=== PATIENT | male | born 1975 | race Two or more races ===

== ENCOUNTER 2024-07-17 16:26 | Emergency (ER) | payer MEDICAID, SELFPAY ==
--- NOTE | ~2024-07-17 | XR_ITS ---
CLINICAL HISTORY: pain Right knee, 4 views COMPARISON: None FINDINGS: No acute fracture. No dislocation. Upper patellar enthesophyte. Small suprapatellar effusion. Mild soft tissue edema. IMPRESSION: No acute fracture. Small effusion. Mild soft tissue edema. This document has been electronically signed by: Umair Christine MD on 07/17/2024 19:06:49
[2024-07-17 17:10] VITALS: BP 128/70; BP 129/87; PULSE 53; PULSE 60; RESP 18; TEMP 36.7; O2SAT 98; BMI 30.7
--- NOTE | 2024-07-17 17:19 | ED.GENADULT ---
HPI - General Adult General Chief complaint: Extremity Injury, Lower Stated complaint: right kne pain Time Seen by Provider: 07/17/24 17:13 Source: patient Mode of arrival: EMS Limitations: no limitations History of Present Illness HPI narrative: This is a 48-year-old man with a reported past medical history of [id number] diabetes mellitus who presents via EMS in police custody for evaluation of atraumatic right knee pain. Patient states that he has a history of gout and feels like his right knee has been bothering him over the last 4 days. He states no trauma or falls. He states no fevers, chills or rash. He states no chest pain or dyspnea. He states no abdominal pain or back pain. He states no GI or symptoms. Related Data Allergies Allergy/AdvReac Type Severity Reaction Status Date / Time No Known Allergies Allergy Verified 07/17/24 17:12 [facility] Social History Social History Advance Directives: No Advance Directives Information Provided: No Physical Exam ED Vital Signs: Vital Signs - 24 hr 07/17/24 17:10 Temperature 98.0 F Pulse Rate 53 Respiratory Rate 18 Blood Pressure 129/87 Pulse Oximetry 98 Oxygen Delivery Method Room Air BMI result Body Mass Index 30.7 Gen: NAD, AOx3 HEENT: NCAT, EOMI, normal conjunctiva CV: RRR, 2+ bilateral DP/PT pulses Pulm: CTAB, no increased work of breathing GI: Soft, NTND, no rebound, guarding or rigidity MSK: Intact active range of motion with right knee flexion/extension, no erythema/edema the right knee, bilateral lower extremity compartments are soft Neuro: Grossly non focal, sensation intact to light touch in bilateral lower extremities Medications Administered Discontinued Medications Generic Name Dose Route Start Last Admin Trade Name Freq PRN Reason Stop Dose Admin Ibuprofen 600 mg 07/17/24 17:23 07/17/24 17:51 Ibuprofen 600 Mg Tablet PO 07/17/24 17:24 600 mg ONCE ONE Administration Medical Decision Making Medical Decision Making [facility] Narrative: Differential diagnosis includes, but is not limited to osteoarthritis, strain, sprain. Patient is afebrile and hemodynamically stable on room air. Exam is benign and reassuring. This is not septic arthritis. Given room unremarkable examination as above I do not suspect infectious arthritis such as Lyme arthritis. Patient was treated supportively with 600 mg p.o. ibuprofen. I reviewed x-rays as below. On re-examination, patient is well-appearing and in no acute distress. There is no indication for further emergent evaluation in this otherwise well-appearing patient as above. ?Patient is provided written and verbal instructions, educational materials, recommendations for outpatient follow-up, strict return precautions and teach back is performed. ?Patient states understanding and agreement with plan of care. ?Patient is discharged in police custody in stable and improved condition. Admission/Observation Consideration of admission/observation: Escalation of care including admission/observation considered Independent Interpretation I performed an independent interpretation of an: Plain X-Ray Interpretation: I independently reviewed interpreted the patient's x-ray of the right knee, which demonstrates no acute fracture or dislocation. Radiology Impression Discussion of test interpretation with radiology: I have reviewed the radiologist's reading. Discharge Plan Discharge Clinical Impression: Acute pain of right knee Patient Disposition: Home, Self-Care Instructions: Knee Pain (ED) Additional Instructions: You were seen and evaluated in the emergency room. Your physical exam was reassuring with no evidence of gout. You were given 600 mg ibuprofen. Your x-ray was reassuring. You may continue taking 600 mg ibuprofen every 6 hours as needed for pain. Please always take this with food and water. You may also take 1000 mg Tylenol every 8 hours for additional pain relief. Please follow-up with your primary care doctor in the next 1-2 weeks as needed. Please return to the emergency room if you develop any worsening symptoms or injuries. Referrals: [facility] [Provider Group] [facility] [Provider Group] [facility] [Provider Group] Print Language: Mongolian
[2024-07-17] MEDS: Ibuprofen 600 MG TABLET PO (17:51)
[2024-07-17 19:22] VITALS: BP 129/87; PULSE 53; RESP 18; TEMP 36.7; O2SAT 98
== END 2024-07-17 19:55 | disposition home or self-care (01) ==
PROVIDERS: Emergency Provider Emergency Medicine
DX: M25.561 Pain in right knee (principal); E11.9 Type 2 diabetes mellitus without complications; M10.9 Gout, unspecified
CPT/HCPCS: 73564; 99283

== ENCOUNTER → 2024-07-17 17:24 | Outpatient (BNV) | payer MEDICAID, SELFPAY | PROVIDERS: Emergency Provider Emergency Medicine; Visit Provider Radiology Diagnostic Radiology | DX: M25.561 Pain in right knee (principal) | CPT/HCPCS: 73564 ==